=== PATIENT | male | born 1980 | race American Indian/Alaskan Native ===

== ENCOUNTER 2019-05-20 22:05 | Emergency (ER) | payer BC ==
[2019-05-20 22:27] VITALS: BP 137/87
[2019-05-20] MEDS ORDERED: predniSONE 20 MG TAB PO ONE (23:42)
[2019-05-20] MEDS ORDERED: IBUPROFEN 600 MG TAB PO ONE (23:42)
[2019-05-20] MEDS ORDERED: GABAPENTIN 300 MG CAP PO ONE (23:42)
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
== END 2019-05-21 00:41 | disposition home or self-care (01) ==
LOC: ED 22:05
DX: S46.911A Strain of unspecified muscle, fascia and tendon at shoulder and upper arm level, right arm, initial encounter (principal); M54.12 Radiculopathy, cervical region; F43.0 Acute stress reaction; F17.200 Nicotine dependence, unspecified, uncomplicated; F12.10 Cannabis abuse, uncomplicated; Z79.899 Other long term (current) drug therapy; X58.XXXA Exposure to other specified factors, initial encounter; Y93.89 Activity, other specified; Y92.89 Other specified places as the place of occurrence of the external cause; Y99.8 Other external cause status
CPT/HCPCS: 99282; J7512

== ENCOUNTER 2020-09-08 07:45 | Emergency (ER) | payer SELFPAY ==
--- NOTE | 2020-09-08 08:17 | Emergency Department Report ---
Blank Doc - Documentation Documentation: 40-year-old male that presents with thoracic spine pain with shortness of timmy th. Patient has bradycardia in triage. 1- This initial assessment/diagnostic orders/clinical plan/ treatment(s) is/are subject to change based on pt's health status, clinical progression and re-asse ssment by fellow clinical providers in the ED. Further treatment and workup at subsequent clinical provers discretion. Patient/guardians urged not to elope from ED as their condition may be serious if not clinically assessed and managed. 2-cardiac work-up due to thoracic spine pain with bradycardia
[2020-09-08 08:58] LABS: Alanine Aminotransferase 15 units/L (7-56); Albumin 4.3 g/dL (3.9-5); BUN/Creatinine Ratio 14; Blood Urea Nitrogen 15 mg/dL (9-20); Calcium 9.2 mg/dL (8.4-10.2); Hemolysis Index 16
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
[2020-09-08 09:09] LABS: Basophils # (Auto) 0.1 K/mm3 (0.0-0.1); Basophils % (Auto) 1.2 % (0.0-1.8); Eosinophils # (Auto) 0.1 K/mm3 (0.0-0.4); Eosinophils % (Auto) 1.8 % (0.0-4.3); Hematocrit 38.3 % (35.5-45.6); Hemoglobin 12.8 gm/dl (11.8-15.2); Lymphocytes # (Auto) 1.8 K/mm3 (1.2-5.4); Lymphocytes % (Auto) 22.3 % (13.4-35.0); Mean Corpuscular HGB Conc 33 % (32-34); Mean Corpuscular Volume 90 fl (84-94); Monocytes # (Auto) 0.6 K/mm3 (0.0-0.8); Platelet Count 202 K/mm3 (140-440); Red Blood Count 4.24 M/mm3 (3.65-5.03); Red Cell Distribution Width 12.4 % (13.2-15.2)
[2020-09-08 09:23] LABS: INR 0.98 (0.87-1.13)
[2020-09-08 09:24] LABS: Partial Thromboplastin Time 30.6 Sec. (24.2-36.6)
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
[2020-09-08 12:33] LABS: Bilirubin,Urine NEG (Negative); Blood,Urine NEG (Negative); Color,Urine Yellow (Yellow); Mucus,Urine FEW /HPF; Protein,Urine <15 mg/dL mg/dL (Negative); RBC,Urine < 1.0 /HPF (0.0-6.0); Urobilinogen,Urine < 2.0 mg/dL (<2.0); WBC,Urine < 1.0 /HPF (0.0-6.0)
[2020-09-08 12:41] LABS: Amphetamine Screen,Urine Negative; Benzodiazepines Screen,Urine Negative; Cocaine Screen,Urine Negative; Methadone Screen,Urine Negative; Opiate Screen,Urine Negative
[2020-09-08 12:57] LABS: Cannabinoid Screen,Urine Positive
[2020-09-08 14:31] VITALS: BP 146/80
--- NOTE | 2020-09-10 10:28 | Electrocardiograph Report ---
[facility] Test Date: 2020-09-08 Test Time: 08:34:29 Pat Name: BUBBA BILLINGS Department: Room: Gender: M Cook Seafood: BELLA : 1980 Requested By: JUANA GOMEZ Order Number: [id number] Reading MD: Mani Rodríguez Measurements Intervals [place] Rate: 67 P: 126 TX: 112 QRS: 75 QRSD: 97 T: 46 QT: 383 QTc: 404 Interpretive Statements Sinus rhythm Atrial premature complexes in [place]. Probable left atrial enlargement Left ventricular hypertrophy No previous ECG available for comparison Electronically Signed On 09-10-2020 10:28:09 EDT by Mani Rodríguez
== END 2020-09-08 14:15 | disposition home or self-care (01) ==
LOC: ED 07:45
DX: R07.89 Other chest pain (principal); I10 Essential (primary) hypertension; F17.200 Nicotine dependence, unspecified, uncomplicated; F12.90 Cannabis use, unspecified, uncomplicated; Z98.890 Other specified postprocedural states; Z79.899 Other long term (current) drug therapy
CPT/HCPCS: 36415; 71046; 80053; 80307; 81001; 83735; 84484; 85025; 85379; 85610; 85730; 93005; 99284